=== PATIENT | male | born 1995 | race Caucasian/White ===

== ENCOUNTER 2020-07-06 12:42 | Emergency (ER) | payer BC ==
[2020-07-06] MEDS ORDERED: Acetaminophen/HYDROcodone 325-5 MG Tab ONE (12:45)
[2020-07-06] MEDS ORDERED: Acetaminophen/HYDROcodone 325-10 MG Tab PO ONE (12:45)
[2020-07-06] MEDS ORDERED: Ketamine 200 MG/20 ML MDV IVPUSH ONE ×2 (14:08→14:30)
[2020-07-06] MEDS ORDERED: Ondansetron 4 MG/2 ML SDV IVPUSH ONE (14:08)
[2020-07-06] MEDS ORDERED: Ondansetron 4 MG/2 ML SDV ONE (14:17)
--- NOTE | 2020-07-06 15:08 | EDM.PDOC ---
ED HPI GENERAL MEDICAL PROBLEM - General Chief Complaint: General Stated Complaint: extremity injury Time Seen by Provider: 07/06/20 12:42 Past Medical History Other HEENT History: wears glasses ED ROS GENERAL - Review of Systems Review Of Systems: See Below Constitutional: Reports: No Symptoms HEENT: Reports: No Symptoms Respiratory: Reports: No Symptoms Cardiovascular: Reports: No Symptoms Endocrine: Reports: No Symptoms GI/Abdominal: Reports: No Symptoms : Reports: No Symptoms Musculoskeletal: Reports: Arm Pain, Joint Swelling Psychiatric: Reports: No Symptoms Hematologic/Lymphatic: Reports: No Symptoms Immunologic: Reports: No Symptoms ED EXAM, GENERAL - Physical Exam Exam: See Below Exam Limited By: No Limitations General Appearance: Alert, Moderate Distress Eye Exam: Bilateral Eye: PERRL Ears: Normal External Exam Nose: Normal Inspection Throat/Mouth: Normal Inspection, Normal Lips, Normal Teeth, Normal Gums, Normal Oropharynx, Normal Voice, No Airway Compromise Head: Atraumatic Neck: Normal Inspection, Non-Tender, Full Range of Motion Respiratory/Chest: No Respiratory Distress, Lungs Clear, Normal Breath Sounds Cardiovascular: Normal Peripheral Pulses, Regular Rate, Rhythm, No Murmur Peripheral Pulses: 3+: Radial (L), Radial (R) GI/Abdominal: Non-Tender (Male) Exam: Deferred Rectal (Males) Exam: Deferred Back Exam: Normal Inspection, Full Range of Motion Extremities: Normal Capillary Refill, Limited Range of Motion Neurological: Alert, Oriented, Normal Cognition, Normal Gait, Normal Reflexes, No Motor/Sensory Deficits Psychiatric: Normal Affect, Normal Mood Skin Exam: Warm, Dry, Intact, Normal Color (significant swelling to left elbow) ED GENERAL MEDICAL PROCEDURES - Joint Reduction Left Elbow Sedation: Other (ketamine) Pre-procedure NV status: Normal Post-procedure NV status: Normal Technique: Traction/Counter Traction Number of Attempts: 2 Post-Reduction Imaging: Acceptably Reduced Joint Reduction Complications: No Progress/Comments: Patient tolerated procedure well, 2 attempts, 2nd being successful. CMS +. Long arm splint applied, CMS +. (Cast padding applied, 4" rubia wrap for compression, then long arm fiberglass splint and rubia bandages applied). Able to move all fingers to thumb. States the pain has improved. Patient will need to follow up with otrho in [facility] Wednesday. They will call at 0800 AM Wednesday for appointment. Course - Orders/Labs/Meds Orders: Active Orders 24 hr Category Date Time Status Elbow 2V Lt [CR] Stat Exams 07/06/20 12:45 Taken Elbow Min 3V Lt [CR] Stat Exams 07/06/20 14:26 Ordered Meds: Medications Discontinued Medications Generic Name Dose Route Start Last Admin Trade Name Michael PRN Reason Stop Dose Admin Hydrocodone Bitart/Acetaminophen 1 tab 07/06/20 12:45 07/06/20 12:45 [place] 325-10 Mg PO 07/06/20 12:46 1 tab ONETIME ONE Administration Ketamine HCl 84 mg 07/06/20 14:08 Ketalar IVPUSH 07/06/20 14:09 ONETIME ONE Ondansetron HCl 8 mg 07/06/20 14:08 Zofran IVPUSH 07/06/20 14:09 ONETIME ONE Ondansetron HCl Confirm 07/06/20 14:17 Zofran Administered 07/06/20 14:18 Dose 8 mg .ROUTE .STK-MED ONE Departure - Departure Time of Disposition: 16:05 Disposition: Home, Self-Care 01 Clinical Impression: Dislocation closed, elbow Qualifiers: Encounter type: initial encounter Laterality: left Qualified Code(s): S53.105A - Unspecified dislocation of left ulnohumeral joint, initial encounter - Discharge Information *PRESCRIPTION DRUG MONITORING PROGRAM REVIEWED*: Not Applicable *COPY OF PRESCRIPTION DRUG MONITORING REPORT IN PATIENT CRAIG: Not Applicable Instructions: Cast or Splint Care, Adult, [id number], Elbow Dislocation, [id number] Forms: ED Department Discharge, ED Return to Work/School Form Additional Instructions: Follow up with ortho MD on Wednesday, call the clinic at 0800 to schedule appointment. DO NOT remove the splint, or get it wet. Gentle movement of fingers. Use sling. Return to ED for any increased or new concerning symptoms./ You may take 1 norco pain pill every 6 hours as needed for pain. - My Orders Last 24 Hours: My Active Orders 07/06/20 12:45 Elbow 2V Lt [CR] Stat 07/06/20 14:26 Elbow Min 3V Lt [CR] Stat - Assessment/Plan Last 24 Hours: My Active Orders 07/06/20 12:45 Elbow 2V Lt [CR] Stat 07/06/20 14:26 Elbow Min 3V Lt [CR] Stat
[2020-07-06] MEDS ORDERED: HYDROmorphone 2 MG/ML SDV IVPUSH ONE (15:38)
[2020-07-06] MEDS ORDERED: HYDROmorphone 2 MG/ML SDV ONE (15:48)
--- NOTE | 2020-07-08 08:42 | CR ---
Date of Service: 07/06/20 Clinical Data: Fall. LEFT ELBOW: There is complete dislocation of the elbow joint with posterior dislocation of the radial head and posterior dislocation of the ulna with respect to the distal humerus. I do not see any definite fractures. [id number] [facility]
--- NOTE | 2020-07-08 08:45 | CR ---
DATE OF SERVICE: 07/06/20 Clinical Data: Post reduction. LEFT ELBOW: Multiple views were obtained. The original images demonstrate persistent dislocation of the elbow joint. Two followup lateral views with a splint in place were performed. There does appear to be normal articular alignment of the elbow joint. No definite fractures. An AP view is, however, recommended to confirm complete reduction and confirm no evidence of fracture. [id number] [facility]
== END 2020-07-06 16:20 | disposition home or self-care (01) ==
LOC: LB.ED 12:42 → EDBD 12:42 → LB.ED 16:20
DX: S53.025A Posterior dislocation of left radial head, initial encounter (principal); W22.8XXA Striking against or struck by other objects, initial encounter; Y92.480 Sidewalk as the place of occurrence of the external cause
CPT/HCPCS: 24600; 73070-LT; 73080-LT; 96374; 96375; 99152; 99153; 99283; 99283-25; A9270-GY; J1170; J2405